=== PATIENT | male | born 1995 | race Caucasian/White ===

== ENCOUNTER 2018-08-02 17:43 | Emergency (ER) | payer BC ==
[~2018-08-02] VITALS: Ht 190.5 cm; Wt 88.6 kg
[2018-08-02 17:54] VITALS: BP 138/86; PULSE 107; TEMP 98.9
== END 2018-08-02 18:58 | disposition home or self-care (01) ==
LOC: COL.ER 17:43
DX: S61.210A Laceration without foreign body of right index finger without damage to nail, initial encounter (principal); Z88.0 Allergy status to penicillin; W26.0XXA Contact with knife, initial encounter; Y92.009 Unspecified place in unspecified non-institutional (private) residence as the place of occurrence of the external cause